=== PATIENT | female | born 1970 | race Caucasian/White ===

== ENCOUNTER 2016-05-27 20:09 | Emergency (ER) | payer OTHER ==
[2016-05-27 20:28] VITALS: BMI 24.3
[2016-05-27] MEDS ORDERED: KETOROLAC TROMETHAMINE 30 MG/1 ML VIAL IM ONE (20:58)
[2016-05-27] MEDS ORDERED: SODIUM CHLORIDE 1,000 ML IV STA ×2 (20:58→22:02)
[2016-05-27] MEDS ORDERED: ONDANSETRON 4 MG/2 ML VIAL IVPB ONE (20:58)
--- NOTE | 2016-05-27 21:10 | PDOC ---
*Physical Exam - Vital Signs Last Vital Signs Temp Pulse Resp BP Pulse Ox 100.0 F H 120 H 20 121/79 100 05/27/16 20:21 05/27/16 20:21 05/27/16 20:21 05/27/16 20:21 05/27/16 20:21 ED Treatment Course - LABORATORY CBC & Chemistry Diagram: 05/27/16 21:06 05/27/16 21:06 Medical Decision Making - Medical Decision Making 05/27/16 21:10 agree with care from SOLITARIO Gordon *DC/Admit/Observation/Transfer Diagnosis at time of Disposition: Influenza, Leukocytosis - Discharge Dispostion Disposition: HOME - Prescriptions Prescriptions: Butalbit/Acetamin/Caff/Codeine [Fioricet-Cod 57-148-82-30 Cap] 1 - 2 each PO Q4H PRN #18 capsule MDD 6 caps PRN Reason: Severe pain/Headache Oseltamivir Phosphate [Tamiflu] 75 mg PO BID #10 capsule Azithromycin [Zithromax -] 250 mg PO DAILY #4 tablet - Referrals Referrals: Jamey Rivera [Primary Care Provider] - - Patient Instructions Printed Discharge Instructions: Influenza, DI for Leukocytosis Additional Instructions: Nano el seguimiento con mccullough proveedor de atencin primaria esta semana. Llame para programar rodolfo saud. Delano los medicamentos segn lo prescrito. Necesita descansar mucho y beber melisa agua. Motrin o Tylenol para el dolor segn sea necesario. Tamiflu para tratar la gripe. Tamiflu no es rodolfo evelyn para la gripe s lo disminuye el tiempo que est enfermo. Zithromax es prevenir cualquier otra infeccin. Si echo sntomas empeoran o cualquier preocupacin vuelve para rodolfo evaluacin adicional. Comience con rodolfo dieta hien, donna jello, salsa de manzana , agua, avila humaira y avance a la dieta regular segn lo tolerado. Follow up with your primary care provider this week. Call to schedule appointment. Take medications as prescribed. You need to get plenty of rest and drink lots of water. Motrin or Tylenol for pain as needed. Tamiflu to treat flu. Tamiflu is not a cure for flu it just lessens the time you are sick. Zithromax is to prevent any further infection. If your symptoms worsen or any concerns return for further evaluation. Start with clear diet, such as Jello, Apple sauce, water, toast and advance to regular diet as tolerated. Print Language: NORTHERN IRISH
[2016-05-27] MEDS ORDERED: KETOROLAC TROMETHAMINE 30 MG/1 ML VIAL ONE ×2 (21:18→21:20)
[2016-05-27] MEDS ORDERED: ONDANSETRON 4 MG/2 ML VIAL ONE (21:18)
--- NOTE | 2016-05-27 21:21 | PDOC ---
History of Present Illness - General Chief Complaint: Pain Stated Complaint: ABD PAIN Time Seen by Provider: 05/27/16 20:46 History Source: Patient, Family (Daughter) Exam Limitations: Language Barrier - History of Present Illness Initial Comments: 05/27/16 21:16 45yo Female patient presents to ED c/o fever, body aches, nausea, poor appetite , + sick contacts, h/a x 3 days. Patient reports she went to see her PCP last week and was prescribed Zithromax. Patient has only taken 2 doses and does not feel any better, so she stopped taking medications. Patient denies any other complaints at this time. PmHx: Fibromyalgia, and asthma. Timing/Duration: 1 week, getting worse Severity: severe Modifying Factors: improves with: medication Associated Symptoms: reports: headaches, loss of appetite, malaise, nausea/ vomiting, weakness, other (Please See HPI) Aspirin Received prior to arrival: No: no aspirin today, unknown, 81 mg x 1, 81 mg x 2, 81 mg x 3, 81 mg x 4, 325 mg x 1, provided at home, provided by EMS, provided by ED [facility] Contraindications(Core Measure): No: Allergy, Other, Active Blding w/i 24 hrs., Plavix, Receiving Warfarin Beta Snehal Contraindications(Core Measure): No: Not Prescribed, Allergy, Bradycardia (HR <60bpm), Advanced Heart Block, Pacemaker, Other Past History - Travel Traveled outside of the country in the last 30 days: No Close contact w/someone who was outside of country & ill: No - Past Medical History Allergies/Adverse Reactions: Allergies Allergy/AdvReac Type Severity Reaction Status Date / Time No Known Allergies Allergy Verified 05/27/16 20:21 Home Medications: Ambulatory Orders Acetaminophen [Mapap] 500 mg PO Q8H 05/27/16 Azithromycin 500 mg PO DAILY 05/27/16 Cholecalciferol (Vitamin D3) [Vitamin D3] 400 unit PO DAILY 05/27/16 Cyclobenzaprine HCl [Flexeril -] 10 mg PO BID 05/27/16 Hydroxychloroquine Sulfate 200 mg PO DAILY 05/27/16 Loratadine 10 mg PO DAILY 05/27/16 Montelukast Na [Singulair -] 10 mg PO DAILY 05/27/16 Azithromycin [Zithromax -] 250 mg PO DAILY #4 tablet 05/28/16 Butalbit/Acetamin/Caff/Codeine [Fioricet-Cod 58-807-10-30 Cap] 1 - 2 each PO Q4H PRN #18 capsule MDD 6 caps 05/28/16 Oseltamivir Phosphate [Tamiflu] 75 mg PO BID #10 capsule 05/28/16 Asthma: Yes Other medical history: fibromyalgia - Surgical History Abdominal Surgery: Yes (tummy tuck, lipo) - Immunization History Immunization Up to Date: Yes - Psycho/Social/Smoking Cessation Hx Suicidal Ideation: No Smoking History: Never smoked Hx Alcohol Use: No Drug/Substance Use Hx: No Review of Systems - Review of Systems Able to Perform ROS?: Yes Is the patient limited Wolof proficient: No Constitutional: Yes: Fever, Malaise. No: Chills, Weakness Respiratory: No: Cough, Shortness of Breath, Stridor, Wheezing Cardiac (ROS): No: Chest Pain ABD/GI: Yes: Nausea, Poor Appetite, Poor Fluid Intake. No: Diarrhea, Vomiting : No: Burning, Dysuria, Hematuria Musculoskeletal: Yes: Muscle Pain Integumentary: No: Bruising, Erythema, Rash, Sweating Neurological: Yes: Headache, Weakness, Dizziness. No: Numbness, Seizure, Tingling, Tremors All Other Systems: Reviewed and Negative *Physical Exam - Vital Signs Last Vital Signs Temp Pulse Resp BP Pulse Ox 100.0 F H 120 H 20 121/79 100 05/27/16 20:21 05/27/16 20:21 05/27/16 20:21 05/27/16 20:21 05/27/16 20:21 - Physical Exam General Appearance: Yes: Nourished, Appropriately Dressed, Moderate Distress HEENT: positive: EOMI, DMITRY, Normal ENT Inspection, Normal Voice, Symmetrical, TMs Normal, Pharynx Normal Neck: positive: Trachea midline, Supple Respiratory/Chest: positive: Lungs Clear, Normal Breath Sounds Cardiovascular: positive: Regular Rhythm, Regular Rate Gastrointestinal/Abdominal: positive: Normal Bowel Sounds, Soft. negative: Tender Lymphatic: negative: Adenopathy Musculoskeletal: positive: Normal Inspection. negative: CVA Tenderness Extremity: positive: Normal Capillary Refill, Normal Inspection, Normal Range of Motion. negative: Pedal Edema, Swelling, Erythema Integumentary: positive: Normal Color, Dry, Warm. 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 NML intact, Fully Oriented, Alert, Normal Mood/ Affect, Normal Response, Motor Strength 09/19 ED Treatment Course - LABORATORY CBC & Chemistry Diagram: 05/27/16 21:06 05/27/16 21:06 *DC/Admit/Observation/Transfer Diagnosis at time of Disposition: Influenza Leukocytosis Qualifiers: Leukocytosis type: other Qualified Code(s): D72.828 - Other elevated white blood cell count - Discharge Dispostion Disposition: HOME Condition at time of disposition: Stable Admit: No - Prescriptions Prescriptions: Butalbit/Acetamin/Caff/Codeine [Fioricet-Cod 85-380-10-30 Cap] 1 - 2 each PO Q4H PRN #18 capsule MDD 6 caps PRN Reason: Severe pain/Headache Oseltamivir Phosphate [Tamiflu] 75 mg PO BID #10 capsule Azithromycin [Zithromax -] 250 mg PO DAILY #4 tablet - Patient Instructions Printed Discharge Instructions: Influenza, DI for Leukocytosis Additional Instructions: Nano el seguimiento con mccullough proveedor de atencin primaria esta semana. Llame para programar rodolfo saud. [place] los medicamentos segn lo prescrito. Necesita descansar mucho y beber melisa agua. Motrin o Tylenol para el dolor segn sea necesario. Tamiflu para tratar la gripe. Tamiflu no es rodolfo evelyn para la gripe s lo disminuye el tiempo que est enfermo. Zithromax es prevenir cualquier otra infeccin. Si echo sntomas empeoran o cualquier preocupacin vuelve para rodolfo evaluacin adicional. Comience con rodolfo dieta hien, donna jello, salsa de manzana , agua, avila humaira y avance a la dieta regular segn lo tolerado. Follow up with your primary care provider this week. Call to schedule appointment. Take medications as prescribed. You need to get plenty of rest and drink lots of water. Motrin or Tylenol for pain as needed. Tamiflu to treat flu. Tamiflu is not a cure for flu it just lessens the time you are sick. Zithromax is to prevent any further infection. If your symptoms worsen or any concerns return for further evaluation. Start with clear diet, such as Jello, Apple sauce, water, toast and advance to regular diet as tolerated. Print Language: ERITREAN
[2016-05-27 21:51] LABS: CALCIUM 8.5 mg/dL (8.5-10.1); CREATININE 0.8 mg/dL (0.55-1.02)
[2016-05-27 21:56] LABS: BASOPHIL 0.3 % (0-2.0); EOSINOPHIL 0.1 % (0-4.5); MCH 29.9 pg (25.7-33.7); MCHC 32.7 g/dl (32.0-36.0); MEAN CELL VOLUME 91.3 fl (80-96); NEUTROPHILS 87.7 % (42.8-82.8); PLATELET COUNT 340 K/MM3 (134-434); WHITE BLOOD COUNT 17.1 K/mm3 (4.0-10.0)
[2016-05-27] MEDS ORDERED: ACETAMINOPHEN/CAFFEINE/BUTALBITAL 1 TAB PO ONE (22:02)
[2016-05-27] MEDS ORDERED: METHOCARBAMOL 500 MG TABLET PO ONE (22:02)
[2016-05-27] MEDS ORDERED: ACETAMINOPHEN/CAFFEINE/BUTALBITAL 1 TAB ONE (22:06)
[2016-05-27] MEDS ORDERED: METHOCARBAMOL 500 MG TABLET ONE (22:06)
[2016-05-27 22:47] LABS: AMYLASE 46 U/L (25-115)
[2016-05-27 23:10] LABS: URINE APPEARANCE CLEAR; URINE BILIRUBIN NEGATIVE (NEGATIVE); URINE BLOOD NEGATIVE (NEGATIVE); URINE COLOR LT. YELLOW; URINE GLUCOSE (UA) NEGATIVE (NEGATIVE); URINE KETONE 2+ (NEGATIVE); URINE LEUK ESTERASE NEGATIVE (NEGATIVE); URINE NITRITE NEGATIVE (NEGATIVE); URINE PROTEIN NEGATIVE (NEGATIVE); URINE UROBILINOGEN 0.2 E.U/dl E.U./dl (0.2-1.0)
[2016-05-28] MEDS ORDERED: OSELTAMIVIR PHOSPHATE 75 MG CAPSULE PO ONE (00:03)
[2016-05-28] MEDS ORDERED: AZITHROMYCIN 250 MG TABLET (FP) PO ONE (00:03)
[2016-05-28] MEDS ORDERED: OSELTAMIVIR PHOSPHATE 75 MG CAPSULE ONE (00:21)
[2016-05-28] MEDS ORDERED: AZITHROMYCIN 250 MG TABLET (FP) ONE (00:21)
[2016-05-29 17:38] VITALS: BP 123/75; PULSE 88; TEMP 98.7
== END 2016-05-28 00:34 | disposition home or self-care (01) ==
LOC: JER 20:09
PROC: 3E0337Z Introduction of Electrolytic and Water Balance Substance into Peripheral Vein, Percutaneous Approach (ICD-10-PCS; principal; 2016-05-27)
PROC: 3E033GC Introduction of Other Therapeutic Substance into Peripheral Vein, Percutaneous Approach (ICD-10-PCS; 2016-05-27)
PROC: 3E0233Z Introduction of Anti-inflammatory into Muscle, Percutaneous Approach (ICD-10-PCS; 2016-05-27)
DX: J11.1 Influenza due to unidentified influenza virus with other respiratory manifestations (principal); D72.828 Other elevated white blood cell count
CPT/HCPCS: 36415; 71020-TC; 80048; 81003; 82150; 82550; 83690; 84703; 85025; 99283-25

== ENCOUNTER 2019-01-24 20:56 | Emergency (ER) | payer OTHER ==
--- NOTE | 2019-01-24 21:07 | PDOC ---
Rapid Medical Evaluation Medical Evaluation: Allergies Allergy/AdvReac Type Severity Reaction Status Date / Time No Known Allergies Allergy Verified 05/27/16 20:21 I have performed a brief in-person evaluation of this patient. The patient presents with a chief complaint of: hx of lupus, fibromyalgia, arthritis; C/O red and black discoloration/pain along L lateral thigh from today ; denies fall, surgery Pertinent physical exam findings: +large hematoma along L lateral thigh I have ordered the following: labs The patient will proceed to the ED for further evaluation. 01/24/19 21:02
[2019-01-24 21:12] VITALS: BP 148/85; PULSE 91; TEMP 98.8; BMI 26.9
[2019-01-24 21:34] LABS: BASO % 0.6 % (0-2.0); EOS % 1.7 % (0-4.5); HEMATOCRIT 37.2 % (32.4-45.2); HEMOGLOBIN 12.4 GM/dL (10.7-15.3); LYMPH % 24.1 % (8-40); MCH 30.9 pg (25.7-33.7); MCHC 33.5 g/dl (32.0-36.0); MEAN CELL VOLUME 92.3 fl (80-96); MEAN PLT VOLUME 7.9 fl (7.5-11.1); MONO % 7.4 % (3.8-10.2); NEUT % 66.2 % (42.8-82.8); PLATELET COUNT 382 K/MM3 (134-434); RBC 4.03 M/mm3 (3.60-5.2); RDW 13.4 % (11.6-15.6); WHITE BLOOD COUNT 9.9 K/mm3 (4.0-10.0)
[2019-01-24 21:48] LABS: INR 0.92 (0.83-1.09); PROTHROMBIN TIME (PATIENT) 10.9 SEC (9.7-13.0)
[2019-01-24 21:51] LABS: ACTIVATED PTT 29.9 SECONDS (25.2-36.5)
[2019-01-24 22:06] LABS: ALBUMIN 3.7 g/dl (3.4-5.0); BILIRUBIN,TOTAL 0.2 mg/dL (0.2-1); BLOOD UREA NITROGEN 12.4 mg/dL (7-18); CALCIUM 9.4 mg/dL (8.5-10.1); CREATININE 0.8 mg/dL (0.55-1.3); TOT PROT 7.7 g/dl (6.4-8.2)
--- NOTE | 2019-01-24 22:50 | PDOC ---
History of Present Illness - General Chief Complaint: Redness To Affected Area Stated Complaint: LEFT LEG PAIN Time Seen by Provider: 01/24/19 21:01 History Source: Patient Exam Limitations: No Limitations - History of Present Illness Initial Comments: 01/24/19 22:56 HISTORY OF PRESENT ILLNESS: 48 old woman past medical history of lupus, Sjogren' s, fibromyalgia who presents emergency department for evaluation of atraumatic bruising present to left hip starting today. Patient reports she woke up this morning felt some itching in her left hip. She describes it then and noted that she had a tight feeling in her left thigh an area of faint erythema and induration to the left lateral thigh. She denies any fevers, chills, trauma. No recent travel or sick contacts. PAST MEDICAL HISTORY: Denies past medical history SURGICAL HISTORY: Denies ALLERGIES: No known drug allergies REVIEW OF SYSTEMS General/Constitutional: Denies fever or chills. Denies weakness, weight change. HEENT: Denies change in vision. Denies ear pain or discharge. Denies sore throat. Cardiovascular: Denies chest pain or shortness of breath. Respiratory: Denies cough, wheezing, or hemoptysis. Gastrointestinal: Denies nausea, vomiting, diarrhea or constipation. Denies rectal bleeding. Genitourinary: Denies dysuria, frequency, or change in urination. Musculoskeletal: see HPI Skin and breasts: Denies rash or easy bruising. Neurologic: Denies headache, vertigo, loss of consciousness, or loss of sensation. Psychiatric: Denies depression or anxiety. Endocrine: Denies increased thirst. Denies abnormal weight change. Hematologic/Lymphatic: Denies anemia, easy bleeding, or history of blood clots. Allergic/Immunologic: Denies hives or skin allergy. Denies latex allergy. PHYSICAL EXAM General Appearance: Well-appearing, appropriately dressed. No apparent distress , no intoxication. Respiratory/Chest: Lungs CTAB. No shortness of breath, chest tenderness, respiratory distress, accessory muscle use. No crackles, rales, rhonchi, stridor , wheezing, dullness Cardiovascular: RRR. S1, S2. No JVD, murmur, bradycardia, tachycardia. Vascular Pulses: Dorsalis-Pedis (R): 2+, Dorsalis-Pedis (L): 2+ Musculoskeletal/Extremities: Normal inspection. FROM of all extremities, normal capillary refill. Pelvis Stable. No CVA tenderness. No tenderness to palpation over the left trochanter. Ambulatory with steady gait. Integumentary: Indurated lacy 17 x 19 cm ovoid area present to the left lateral hip. Tenderness upon palpation. No ecchymosis is present. 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 Fully oriented, alert. Appropriate mood/affect. Motor strength 5/5. No appreciable EOM palsy, facial droop or sensory deficit. Past History - Past Medical History Allergies/Adverse Reactions: Allergies Allergy/AdvReac Type Severity Reaction Status Date / Time No Known Allergies Allergy Verified 05/27/16 20:21 Home Medications: Ambulatory Orders Acetaminophen [Mapap] 500 mg PO Q8H 05/27/16 Azithromycin 500 mg PO DAILY 05/27/16 Cholecalciferol (Vitamin D3) [Vitamin D3] 400 unit PO DAILY 05/27/16 Cyclobenzaprine HCl [Flexeril -] 10 mg PO BID 05/27/16 Hydroxychloroquine Sulfate 200 mg PO DAILY 05/27/16 Loratadine 10 mg PO DAILY 05/27/16 Montelukast Na [Singulair -] 10 mg PO DAILY 05/27/16 Azithromycin [Zithromax -] 250 mg PO DAILY #4 tablet 05/28/16 Butalbit/Acetamin/Caff/Codeine [Fioricet-Cod 74-618-26-30 Cap] 1 - 2 each PO Q4H PRN #18 capsule MDD 6 caps 05/28/16 Oseltamivir Phosphate [Tamiflu] 75 mg PO BID #10 capsule 05/28/16 Asthma: Yes COPD: No Other medical history: lupus, fibromyalgia - Surgical History Abdominal Surgery: Yes (tummy tuck, lipo) - Immunization History Immunization Up to Date: Yes - Suicide/Smoking/Psychosocial Hx Smoking History: Never smoked Hx Alcohol Use: No Drug/Substance Use Hx: No *Physical Exam - Vital Signs Last Vital Signs Temp Pulse Resp BP Pulse Ox 98.8 F 91 H 18 148/85 9 L 01/24/19 21:03 01/24/19 21:03 01/24/19 21:03 01/24/19 21:03 01/24/19 21:03 ED Treatment Course - LABORATORY CBC & Chemistry Diagram: 01/24/19 21:20 01/24/19 21:20 - ADDITIONAL ORDERS Additional order review: Laboratory Results 01/24/19 01/24/19 21:20 21:20 PT with INR 10.90 INR 0.92 PTT (Actin FS) 29.9 Sodium 138 Potassium 4.0 Chloride 104 Carbon Dioxide 24 Anion Gap 9 BUN 12.4 Creatinine 0.8 Est GFR (CKD-EPI)AfAm 101.75 Est GFR (CKD-EPI)NonAf 87.79 Random Glucose 94 Calcium 9.4 Total Bilirubin 0.2 AST 23 ALT 14 Alkaline Phosphatase 87 Total Protein 7.7 Albumin 3.7 01/24/19 21:20 RBC 4.03 MCV 92.3 MCHC 33.5 RDW 13.4 MPV 7.9 Neutrophils % 66.2 D Lymphocytes % 24.1 D Monocytes % 7.4 Eosinophils % 1.7 D Basophils % 0.6 Medical Decision Making - Medical Decision Making 01/24/19 23:00 A/P: 48-year-old woman with developing hematoma to left thigh Labs per RME UPT CT of left leg Reassess 01/25/19 02:04 Multiple attempts to find patient emergency department at been unsuccessful. Patient without IV access in place. 01/25/19 02:48 *DC/Admit/Observation/Transfer Diagnosis at time of Disposition: Hip pain, left - Discharge Dispostion Disposition: ELOPED - Referrals Referrals: ON STAFF,NOT [Primary Care Provider] - - Patient Instructions - Post Discharge Activity
== END 2019-01-25 00:10 | disposition home or self-care (01) ==
LOC: JER 20:56
DX: M25.552 Pain in left hip (principal); M79.7 Fibromyalgia; M35.00 Sjogren syndrome, unspecified
CPT/HCPCS: 36415; 80053; 85025; 85610; 85730; 99282-25

== ENCOUNTER 2019-01-26 10:54 | Emergency (ER) | payer OTHER ==
[2019-01-26 11:10] VITALS: TEMP 98.3; BMI 29.2
[2019-01-26] MEDS ORDERED: ASPIRIN 81 MG CHEWABLE TABLETS PO ONE (11:59)
--- NOTE | 2019-01-26 12:13 | PDOC ---
History of Present Illness - General Chief Complaint: Pain Stated Complaint: LT LEG PAIN/REVISIT Time Seen by Provider: 01/26/19 11:31 - History of Present Illness Initial Comments: 01/26/19 12:07 48-year-old female with a past medical history of SLE, Sjogren's, asthma, and chronic pain and depression presents for evaluation of chest pain and an ecchymotic area on her left thigh. The area on her left thigh started out as erythema she was seen in the emergency room but unfortunately eloped and wasn't properly worked up. She now has similar ecchymotic areas on bilateral inner thighs. Chest pain has been on and off since Thursday. Past History - Past Medical History Allergies/Adverse Reactions: Allergies Allergy/AdvReac Type Severity Reaction Status Date / Time No Known Allergies Allergy Verified 01/26/19 11:02 Home Medications: Ambulatory Orders Acetaminophen [Mapap] 500 mg PO Q8H 05/27/16 Azithromycin 500 mg PO DAILY 05/27/16 Cholecalciferol (Vitamin D3) [Vitamin D3] 400 unit PO DAILY 05/27/16 Cyclobenzaprine HCl [Flexeril -] 10 mg PO BID 05/27/16 Hydroxychloroquine Sulfate 200 mg PO DAILY 05/27/16 Loratadine 10 mg PO DAILY 05/27/16 Montelukast Na [Singulair -] 10 mg PO DAILY 05/27/16 Azithromycin [Zithromax -] 250 mg PO DAILY #4 tablet 05/28/16 Butalbit/Acetamin/Caff/Codeine [Fioricet-Cod 97-000-89-30 Cap] 1 - 2 each PO Q4H PRN #18 capsule MDD 6 caps 05/28/16 Oseltamivir Phosphate [Tamiflu] 75 mg PO BID #10 capsule 05/28/16 Asthma: Yes COPD: No Other medical history: Lupus - Surgical History Abdominal Surgery: Yes (brown dejesus) - Immunization History Immunization Up to Date: Yes - Suicide/Smoking/Psychosocial Hx Smoking History: Never smoked Have you smoked in the past 12 months: No Hx Alcohol Use: No Drug/Substance Use Hx: No Review of Systems - Review of Systems Constitutional: No: Fever Cardiac (ROS): Yes: Chest Pain Integumentary: Yes: Pruritus, Rash *Physical Exam - Vital Signs Last Vital Signs Temp Pulse Resp BP Pulse Ox 98.3 F 95 H 18 126/84 97 01/26/19 11:04 01/26/19 11:04 01/26/19 11:04 01/26/19 11:04 01/26/19 11:04 - Physical Exam Comments: 01/26/19 12:10 HEAD: NC/AT EYES: Conjuntiva clear Ears: Canals and TM's normal NOSE: No d/c THROAT: Moist mucous membrances, oral pharanx clear, uvula midline NECK: Supple without adenopathy CARDIAC: S1 S2 LUNGS: CTA Full and Equal breath sounds ABDOMEN: Soft NT ND MS: Full ROM in all joints without edema NEUROLOGIC: No gross sensory or motor deficits, NVID SKIN: Normal color and temperature is an ecchymotic area on the lateral aspect of the left hip; there is a large area of the raised wheal with erythema and warmth without induration or fluctuance on the medial aspect of the left thigh ED Treatment Course - RADIOLOGY Radiology Studies Ordered: Category Date Time Status CHEST PA & LAT [RAD] Stat Radiology 01/26/19 11:59 Ordered Medical Decision Making - Medical Decision Making 01/26/19 12:13 I discussed this case with the emergency room attending. We'll do a cardiac workup at this time and transfer this patient to the main emergency room for further workup evaluation and treatment *DC/Admit/Observation/Transfer Diagnosis at time of Disposition: Chest pain - Referrals Referrals: Jamey Rivera [Primary Care Provider] - - Patient Instructions - Post Discharge Activity
[2019-01-26 12:40] LABS: BASO % 0.7 % (0-2.0); EOS % 1.9 % (0-4.5); HEMATOCRIT 38.2 % (32.4-45.2); HEMOGLOBIN 12.9 GM/dL (10.7-15.3); LYMPH % 23.1 % (8-40); MCH 31.2 pg (25.7-33.7); MCHC 33.8 g/dl (32.0-36.0); MEAN CELL VOLUME 92.4 fl (80-96); MEAN PLT VOLUME 7.5 fl (7.5-11.1); MONO % 9.5 % (3.8-10.2); NEUT % 64.8 % (42.8-82.8); PLATELET COUNT 377 K/MM3 (134-434); RBC 4.13 M/mm3 (3.60-5.2); RDW 13.4 % (11.6-15.6); WHITE BLOOD COUNT 7.2 K/mm3 (4.0-10.0)
[2019-01-26 13:08] LABS: ALBUMIN 3.7 g/dl (3.4-5.0); ALK PHOS 80 U/L (45-117); ANION GAP 8 MMOL/L (8-16); BILIRUBIN,TOTAL 0.5 mg/dL (0.2-1); BLOOD UREA NITROGEN 7.8 mg/dL (7-18); CALCIUM 8.8 mg/dL (8.5-10.1); CHLORIDE 105 mmol/L (98-107); CO2 25 mmol/L (21-32); CREATININE 0.6 mg/dL (0.55-1.3); GLUCOSE,RANDOM 82 mg/dL (74-106); MAGNESIUM 2.2 mg/dL (1.8-2.4); POTASSIUM 4.1 mmol/L (3.5-5.1); SGOT/AST 25 U/L (15-37); SGPT/ALT 13 U/L (13-61); SODIUM 138 mmol/L (136-145); TOT PROT 7.9 g/dl (6.4-8.2)
[2019-01-26] MEDS ORDERED: diphenhydrAMINE HCL 25 MG CAPSULE (FP) PO ONE ×2 (13:16→13:34)
--- NOTE | 2019-01-26 13:22 | PDOC ---
History of Present Illness - General Chief Complaint: Pain Stated Complaint: LT LEG PAIN/REVISIT Time Seen by Provider: 01/26/19 11:31 History Source: Patient - History of Present Illness Timing/Duration: reports: other Associated Symptoms: reports: rash Past History - Past Medical History Allergies/Adverse Reactions: Allergies Allergy/AdvReac Type Severity Reaction Status Date / Time No Known Allergies Allergy Verified 01/26/19 11:02 Home Medications: Ambulatory Orders Acetaminophen [Mapap] 500 mg PO Q8H 05/27/16 Azithromycin 500 mg PO DAILY 05/27/16 Cholecalciferol (Vitamin D3) [Vitamin D3] 400 unit PO DAILY 05/27/16 Cyclobenzaprine HCl [Flexeril -] 10 mg PO BID 05/27/16 Hydroxychloroquine Sulfate 200 mg PO DAILY 05/27/16 Loratadine 10 mg PO DAILY 05/27/16 Montelukast Na [Singulair -] 10 mg PO DAILY 05/27/16 Azithromycin [Zithromax -] 250 mg PO DAILY #4 tablet 05/28/16 Butalbit/Acetamin/Caff/Codeine [Fioricet-Cod 46-797-33-30 Cap] 1 - 2 each PO Q4H PRN #18 capsule MDD 6 caps 05/28/16 Oseltamivir Phosphate [Tamiflu] 75 mg PO BID #10 capsule 05/28/16 Asthma: Yes COPD: No Other medical history: Lupus - Surgical History Abdominal Surgery: Yes (tummy tuck, lipo) - Immunization History Immunization Up to Date: Yes - Suicide/Smoking/Psychosocial Hx Smoking History: Never smoked Have you smoked in the past 12 months: No Hx Alcohol Use: No Drug/Substance Use Hx: No Review of Systems - Review of Systems Constitutional: No: Chills, Fever Respiratory: No: Cough, Shortness of Breath Cardiac (ROS): Yes: Chest Pain. No: Lightheadedness, Palpitations, Syncope Integumentary: Yes: Pruritus, Rash *Physical Exam - Vital Signs Last Vital Signs Temp Pulse Resp BP Pulse Ox 98.3 F 95 H 18 126/84 97 01/26/19 11:04 01/26/19 11:04 01/26/19 11:04 01/26/19 11:04 01/26/19 11:04 - Physical Exam General Appearance: Yes: Appropriately Dressed. No: Apparent Distress HEENT: positive: Normal Voice Neck: positive: Supple Respiratory/Chest: positive: Lungs Clear, Normal Breath Sounds. negative: Respiratory Distress Cardiovascular: positive: Regular Rate, S1, S2 Extremity: positive: Normal Inspection, Other (large erythematous macule to medial thigh b/l, ~8x4cm hematoma to lateral aspect of L gluteus, minimal ttp) Integumentary: positive: Dry, Warm Neurologic: positive: Fully Oriented, Alert, Normal Mood/Affect ED Treatment Course - LABORATORY CBC & Chemistry Diagram: 01/26/19 12:17 01/26/19 12:17 - ADDITIONAL ORDERS Additional order review: Laboratory Results 01/26/19 01/26/19 01/26/19 12:17 12:17 12:17 D-Dimer 1411 H Sodium Potassium Chloride Carbon Dioxide Anion Gap BUN Creatinine Est GFR (CKD-EPI)AfAm Est GFR (CKD-EPI)NonAf Random Glucose Calcium Magnesium Cancelled Total Bilirubin AST ALT Alkaline Phosphatase Creatine Kinase Troponin I Total Protein Albumin Serum , Qual Negative 01/26/19 01/26/19 12:17 12:17 D-Dimer Sodium 138 Potassium 4.1 Chloride 105 Carbon Dioxide 25 Anion Gap 8 BUN 7.8 Creatinine 0.6 Est GFR (CKD-EPI)AfAm 125.80 Est GFR (CKD-EPI)NonAf 108.54 Random Glucose 82 Calcium 8.8 Magnesium 2.2 Total Bilirubin 0.5 AST 25 ALT 13 Alkaline Phosphatase 80 Creatine Kinase 72 Cancelled Troponin I < 0.02 Cancelled Total Protein 7.9 Albumin 3.7 Serum , Qual 01/26/19 12:17 RBC 4.13 MCV 92.4 MCHC 33.8 RDW 13.4 MPV 7.5 Neutrophils % 64.8 Lymphocytes % 23.1 Monocytes % 9.5 Eosinophils % 1.9 Basophils % 0.7 Medical Decision Making - Medical Decision Making 01/26/19 13:18 48-year-old female, history of lupus, Sjogren's, fibromyalgia and arthritis, here for evaluation of rash. Patient states she has a history of spontaneous red, itchy rashes that would spontaneously developed into hematomas that, then ultimately resolves. States she was here in ED 2 days ago for hematoma over left hip that initially started out at as a red itchy rash. Patient states she does not always come to the ED, but came in 2 days ago because of the size of the hematoma, which is mildly painful. Since ED visit 2 days ago, has since developed 2 additional red itchy rash to medial thighs bilaterally. Labs 2 days ago were negative, but patient eloped from the ED prior to completion of evaluation. Patient also complaining of vague left-sided chest pain 3 days. No shortness of breath, diaphoresis, palpitations, leg pain or swelling. see exam Spontaneous hematoma Recurrent H/o multiple rhem disease including lupus, not on AC Labs including plts and coags neg in ED 2 days ago -benadryl for pruritis -anticipate dc w/ rheum f/u CP Atypical Stable here -EKG w/ single trop given duration of sxs -CTA given h/o lupus -dispo pending=g 01/26/19 15:47 CTA neg for PE or other acute pathology. Pt remained welll richard and stable here. Will dc w/ rheumatology and PMD f/u *DC/Admit/Observation/Transfer Diagnosis at time of Disposition: Rash and nonspecific skin eruption Chest pain Qualifiers: Chest pain type: unspecified Qualified Code(s): R07.9 - Chest pain, unspecified - Discharge Dispostion Disposition: HOME Condition at time of disposition: Good - Referrals Referrals: Jamey Rivera [Primary Care Provider] - - Patient Instructions Printed Discharge Instructions: DI for Atypical Chest Pain Additional Instructions: Regarding your chest pain, your EKG and CT of your lungs were normal. Please follow-up with your PMD if pain persists. The course of your rash is unclear at this time but may be due to any of the rheumatological disorders that you have. Take an oral antihistamine for itching as discussed today Please follow-up with your hand model for further evaluation - Post Discharge Activity
[2019-01-26 13:27] LABS: INR 1.02 (0.83-1.09)
[2019-01-26] MEDS ORDERED: ASPIRIN 81 MG CHEWABLE TABLETS ONE (13:33)
--- NOTE | 2019-01-26 13:41 | PDOC ---
*Physical Exam - Vital Signs Last Vital Signs Temp Pulse Resp BP Pulse Ox 98.3 F 95 H 18 126/84 97 01/26/19 11:04 01/26/19 11:04 01/26/19 11:04 01/26/19 11:04 01/26/19 11:04 - Physical Exam Comments: 01/26/19 13:40 The patient was examined by [MICHELLE Maria] under my direct supervision. I personally evaluated the patient. I concur with the above findings and the plan of care. ED Treatment Course - LABORATORY CBC & Chemistry Diagram: 01/26/19 12:17 01/26/19 12:17 - ADDITIONAL ORDERS Additional order review: Laboratory Results 01/26/19 01/26/19 01/26/19 12:17 12:17 12:17 PT with INR 12.00 INR 1.02 D-Dimer Sodium Potassium Chloride Carbon Dioxide Anion Gap BUN Creatinine Est GFR (CKD-EPI)AfAm Est GFR (CKD-EPI)NonAf Random Glucose Calcium Magnesium Cancelled Total Bilirubin AST ALT Alkaline Phosphatase Creatine Kinase Troponin I Total Protein Albumin Serum , Qual Negative 01/26/19 01/26/19 01/26/19 12:17 12:17 12:17 PT with INR INR D-Dimer 1411 H Sodium 138 Potassium 4.1 Chloride 105 Carbon Dioxide 25 Anion Gap 8 BUN 7.8 Creatinine 0.6 Est GFR (CKD-EPI)AfAm 125.80 Est GFR (CKD-EPI)NonAf 108.54 Random Glucose 82 Calcium 8.8 Magnesium 2.2 Total Bilirubin 0.5 AST 25 ALT 13 Alkaline Phosphatase 80 Creatine Kinase 72 Cancelled Troponin I < 0.02 Cancelled Total Protein 7.9 Albumin 3.7 Serum , Qual 01/26/19 12:17 RBC 4.13 MCV 92.4 MCHC 33.8 RDW 13.4 MPV 7.5 Neutrophils % 64.8 Lymphocytes % 23.1 Monocytes % 9.5 Eosinophils % 1.9 Basophils % 0.7 *DC/Admit/Observation/Transfer Diagnosis at time of Disposition: Chest pain - Referrals Referrals: Jamey Rivera [Primary Care Provider] - - Patient Instructions - Post Discharge Activity
--- NOTE | 2019-01-26 14:40 | EKG ---
Test Reason : Blood Pressure : / mmHG Vent. Rate : 079 BPM Atrial Rate : 079 BPM P-R Int : 114 ms QRS Dur : 086 ms QT Int : 378 ms P-R-T Axes : 060 -05 008 degrees QTc Int : 433 ms NORMAL SINUS RHYTHM MINIMAL VOLTAGE CRITERIA FOR LVH, MAY BE NORMAL VARIANT BORDERLINE ECG NO PREVIOUS ECGS AVAILABLE Confirmed by EVELYN BHARDWAJ MD ([id number]) on 01/26/2019 2:40:19 PM Referred By: Confirmed By:EVELYN BHARDWAJ MD
[2019-01-26 16:00] VITALS: BP 125/84; PULSE 84
== END 2019-01-26 16:00 | disposition home or self-care (01) ==
LOC: JER 10:54 → JERFT 10:54 → JER 16:00
DX: R07.9 Chest pain, unspecified (principal); J45.909 Unspecified asthma, uncomplicated; M35.00 Sjogren syndrome, unspecified; G89.29 Other chronic pain; F32.9 Major depressive disorder, single episode, unspecified
CPT/HCPCS: 36415; 71046-TC-FY; 71275-TC; 80053; 82550; 83735; 84484; 84703; 85025; 85379; 85610; 93005; 93010; 99284-25

== ENCOUNTER 2020-07-31 14:39 | Observation (INO) | payer OTHER ==
[2020-07-31] MEDS ORDERED: ADENOSINE 6 MG/2 ML VIAL IVPUSH ONE (14:57)
[2020-07-31] MEDS ORDERED: dilTIAZem HCL 50 MG/10 ML - 10 ML VIAL IVPUSH ONE (15:03)
[2020-07-31 16:06] VITALS: BMI 29.2
[2020-07-31 16:23] LABS: BASO % 0.7 % (0-2.0); EOS % 2.1 % (0-4.5); HEMATOCRIT 34.7 % (32.4-45.2); HEMOGLOBIN 11.6 GM/dL (10.7-15.3); LYMPH % 20.7 % (8-40); MCH 31.7 pg (25.7-33.7); MCHC 33.4 g/dl (32.0-36.0); MEAN CELL VOLUME 94.9 fl (80-96); MONO % 9.7 % (3.8-10.2); NEUT % 66.8 % (42.8-82.8); PLATELET COUNT 452 K/MM3 (134-434); RBC 3.65 M/mm3 (3.60-5.2); WHITE BLOOD COUNT 9.1 K/mm3 (4.0-10.0)
[2020-07-31 16:49] LABS: CHLORIDE 105 mmol/L (98-107); POTASSIUM 5.9 mmol/L (3.5-5.1); SODIUM 136 mmol/L (136-145)
[2020-07-31 16:50] LABS: CALCIUM 8.7 mg/dL (8.5-10.1)
[2020-07-31 16:51] LABS: ALBUMIN 3.1 g/dl (3.4-5.0); ANION GAP 9 MMOL/L (8-16); BLOOD UREA NITROGEN 9.2 mg/dL (7-18); CO2 22 mmol/L (21-32); GLUCOSE,RANDOM 88 mg/dL (74-106); MAGNESIUM 2.3 mg/dL (1.8-2.4)
[2020-07-31 16:54] LABS: CREATININE 0.8 mg/dL (0.55-1.3); SGOT/AST 121 U/L (15-37); SGPT/ALT 45 U/L (13-61)
[2020-07-31 16:56] LABS: BILIRUBIN,TOTAL 1.1 mg/dL (0.2-1); TOT PROT 8.3 g/dl (6.4-8.2)
[2020-07-31 16:57] LABS: ALK PHOS 138 U/L (45-117)
[2020-07-31] MEDS ORDERED: ASPIRIN 81 MG CHEWABLE TABLETS PO ONE (17:36)
[2020-07-31 20:36] LABS: URINE APPEARANCE CLEAR; URINE BILIRUBIN NEGATIVE (NEGATIVE); URINE COLOR YELLOW; URINE GLUCOSE (UA) NEGATIVE (NEGATIVE); URINE KETONE TRACE (NEGATIVE); URINE LEUK ESTERASE NEGATIVE (NEGATIVE); URINE NITRITE NEGATIVE (NEGATIVE); URINE PROTEIN NEGATIVE (NEGATIVE); URINE UROBILINOGEN 0.2 mg/dL (0.2-1.0)
[2020-07-31] MEDS ORDERED: IBUPROFEN 400 MG TABLET (FP) PO ONE ×2 (20:50→22:20)
[2020-07-31 22:47] LABS: POTASSIUM 4.1 mmol/L (3.5-5.1)
[2020-07-31 22:49] LABS: BLOOD UREA NITROGEN 7.3 mg/dL (7-18); CALCIUM 8.3 mg/dL (8.5-10.1)
[2020-07-31 22:53] LABS: CREATININE 0.6 mg/dL (0.55-1.3)
[2020-08-01] MEDS: HEPARIN NA (PORCINE) 5,000 UNITS/ML 1ML VIAL SQ SCH ×4 (03:05→21:51)
[2020-08-01 08:43] LABS: BASO % 0.4 % (0-2.0); EOS % 2.2 % (0-4.5); HEMATOCRIT 31.3 % (32.4-45.2); HEMOGLOBIN 10.6 GM/dL (10.7-15.3); LYMPH % 24.8 % (8-40); MCH 31.7 pg (25.7-33.7); MCHC 33.8 g/dl (32.0-36.0); MEAN CELL VOLUME 93.7 fl (80-96); NEUT % 59.6 % (42.8-82.8); PLATELET COUNT 416 K/MM3 (134-434); RBC 3.34 M/mm3 (3.60-5.2); RDW 12.5 % (11.6-15.6); WHITE BLOOD COUNT 6.8 K/mm3 (4.0-10.0)
[2020-08-01 09:06] LABS: POTASSIUM 4.3 mmol/L (3.5-5.1)
[2020-08-01 09:10] LABS: CALCIUM 8.9 mg/dL (8.5-10.1)
[2020-08-01 09:11] LABS: ALBUMIN 2.9 g/dl (3.4-5.0); BLOOD UREA NITROGEN 6.8 mg/dL (7-18); MAGNESIUM 2.2 mg/dL (1.8-2.4)
[2020-08-01 09:14] LABS: CREATININE 0.6 mg/dL (0.55-1.3)
[2020-08-01 09:15] LABS: BILIRUBIN,TOTAL 0.7 mg/dL (0.2-1); TOT PROT 7.2 g/dl (6.4-8.2)
[2020-08-01] MEDS: HYDROXYCHLOROQUINE SO4 200 MG TABLET (FP) PO SCH (10:24)
[2020-08-01] MEDS: LORATADINE 10 MG TABLET PO SCH (10:25)
[2020-08-01] MEDS ORDERED: ACETAMINOPHEN 325 MG TABLET (FP) PO PRN (14:31)
[2020-08-01] MEDS ORDERED: guaiFENesin 200 MG/10 ML 10 ML UNIT-DOSE CUPS PO PRN (14:31)
[2020-08-01] MEDS ORDERED: SODIUM CHLORIDE NASAL SPRAY 44 ML BOTTLE NS ONE (14:45)
[2020-08-01] MEDS ORDERED: MONTELUKAST NA 10 MG TABLET PO SCH (22:00)
[2020-08-02] MEDS: HEPARIN NA (PORCINE) 5,000 UNITS/ML 1ML VIAL SQ SCH ×2 (06:32→13:35)
[2020-08-02 08:40] LABS: HEMATOCRIT 31.6 % (32.4-45.2); HEMOGLOBIN 10.7 GM/dL (10.7-15.3); MCH 31.8 pg (25.7-33.7); MEAN CELL VOLUME 93.5 fl (80-96); MEAN PLT VOLUME 7.6 fl (7.5-11.1); PLATELET COUNT 487 K/MM3 (134-434); RBC 3.38 M/mm3 (3.60-5.2); RDW 12.6 % (11.6-15.6); WHITE BLOOD COUNT 6.5 K/mm3 (4.0-10.0)
[2020-08-02 09:00] LABS: POTASSIUM 3.8 mmol/L (3.5-5.1)
[2020-08-02 09:07] LABS: CALCIUM 8.6 mg/dL (8.5-10.1)
[2020-08-02 09:08] LABS: ALBUMIN 2.8 g/dl (3.4-5.0); BLOOD UREA NITROGEN 10.4 mg/dL (7-18); MAGNESIUM 2.2 mg/dL (1.8-2.4)
[2020-08-02 09:10] LABS: PHOSPHOROUS 3.3 mg/dL (2.5-4.9)
[2020-08-02 09:11] LABS: CREATININE 0.6 mg/dL (0.55-1.3)
[2020-08-02 09:12] LABS: BILIRUBIN,TOTAL 0.5 mg/dL (0.2-1); TOT PROT 7.3 g/dl (6.4-8.2)
[2020-08-02] MEDS: LORATADINE 10 MG TABLET PO SCH (10:05)
[2020-08-02] MEDS: HYDROXYCHLOROQUINE SO4 200 MG TABLET (FP) PO SCH (10:05)
[2020-08-02] MEDS ORDERED: LISINOPRIL 10 MG TABLET PO SCH (11:00)
[2020-08-02] MEDS ORDERED: HYDROCHLOROTHIAZIDE 12.5 MG CAPSULE (FP) PO SCH (11:00)
[2020-08-02 15:29] VITALS: BP 133/97; PULSE 78; TEMP 97.8
[2020-08-02] MEDS ORDERED: ATORVASTATIN CA 20 MG TABLET (FP) PO SCH (22:00)
== END 2020-08-02 16:02 | disposition home or self-care (01) ==
LOC: JER 14:39 → JERBED 18:12 → J6WEST-2 22:37
PROVIDERS: ADMIT Internal Medicine; ATTEND Student in an Organized Health Care Education/Training Program
PROC: 3E023GC Introduction of Other Therapeutic Substance into Muscle, Percutaneous Approach (ICD-10-PCS; principal; 2020-07-31)
DX: U07.1 COVID-19 (principal); M32.9 Systemic lupus erythematosus, unspecified; M35.00 Sjogren syndrome, unspecified; I10 Essential (primary) hypertension; J45.909 Unspecified asthma, uncomplicated; G89.29 Other chronic pain; F32.9 Major depressive disorder, single episode, unspecified; R42 Dizziness and giddiness; E66.3 Overweight; Z29.9 Encounter for prophylactic measures, unspecified
CPT/HCPCS: 36415; 71045-TC-FY; 80048; 80053; 80061; 81003; 83721; 83735; 84100; 84439; 84443; 84484; 85025; 85027; 93005; 93010; 93306-TC; 96372; 99285-25; C9803; G0378; J1644; U0003

== ENCOUNTER 2024-03-14 04:15 | Day surgery (SDC) | payer OTHER ==
[2024-03-11 14:25] VITALS: BMI 29.2
[2024-03-14] MEDS ORDERED: MIDAZOLAM HCL 2 MG/2 ML SINGLE DOSE VIAL ONE (14:45)
[2024-03-14 15:18] VITALS: RESP 16
[2024-03-14 15:57] VITALS: BP 120/84; PULSE 62; TEMP 97.5
== END 2024-03-14 16:07 | disposition home or self-care (01) ==
LOC: JASU-SURG 04:15
PROVIDERS: ATTEND Urology
PROC: 0TF3XZZ Fragmentation in Right Kidney Pelvis, External Approach (ICD-10-PCS; principal; 2024-03-14 14:50)
DX: N20.0 Calculus of kidney (principal)

== ENCOUNTER 2024-03-27 20:50 | Emergency (ER) | payer OTHER ==
[2024-03-27 20:57] VITALS: BMI 29.2
[2024-03-27] MEDS ORDERED: ACETAMINOPHEN 500 MG TABLET (FP) ONE (21:29)
[2024-03-27] MEDS: ACETAMINOPHEN 500 MG TABLET (FP) PO ONE (21:33)
[2024-03-27 21:52] LABS: EPI CELLS 10 /uL (0-25.1); HYALINE CASTS 0 /uL (0-3.1); URINE APPEARANCE CLEAR; URINE BACTERIA 591 /uL (0-1359); URINE BILIRUBIN NEGATIVE (NEGATIVE); URINE COLOR YELLOW; URINE GLUCOSE (UA) NEGATIVE (NEGATIVE); URINE KETONE NEGATIVE (NEGATIVE); URINE LEUK ESTERASE TRACE (NEGATIVE); URINE NITRITE NEGATIVE (NEGATIVE); URINE PROTEIN NEGATIVE (NEGATIVE); URINE WBC 21 /uL (0-25.8)
[2024-03-27] MEDS ORDERED: SULFAMETHOXAZOLE/TRIMETHOPRIM 800MG/160MG D.S. TABLET ONE (22:20)
[2024-03-27] MEDS: SULFAMETHOXAZOLE/TRIMETHOPRIM 800MG/160MG D.S. TABLET PO ONE (22:24)
[2024-03-27 22:25] VITALS: BP 110/78; PULSE 78; RESP 19; TEMP 97.9
[2024-03-27 22:48] LABS: URINE RBC 58.7 /uL (0-23.9)
== END 2024-03-27 22:26 | disposition home or self-care (01) ==
LOC: JERFT 20:50
DX: N39.0 Urinary tract infection, site not specified (principal); M79.10 Myalgia, unspecified site; R68.83 Chills (without fever); J02.9 Acute pharyngitis, unspecified; M54.50 Low back pain, unspecified
CPT/HCPCS: 81003; 87086; 87651; 99283-25

== ENCOUNTER 2024-09-20 17:25 | Emergency (ER) | payer OTHER ==
[2024-09-20 17:35] VITALS: BP 115/77; PULSE 74; RESP 16; TEMP 98.3; BMI 33.2
[2024-09-20] MEDS ORDERED: ACETAMINOPHEN 500 MG TABLET (FP) ONE (18:30)
[2024-09-20] MEDS ORDERED: METOCLOPRAMIDE HCL INJECTION 10 MG/2 ML VIAL ONE (18:31)
[2024-09-20] MEDS ORDERED: MECLIZINE HCL 25 MG TABLET (FP) ONE (18:31)
[2024-09-20 18:39] LABS: ABSOLUTE IMMATURE GRANULOCYTES 0.01 x10^3/uL (0.0-0.031); BASOPHILS # 0.03 x10^3/uL (0.01-0.08); EOSINOPHIL % 6.6 % (0.7-5.8); EOSINOPHILS # 0.44 x10^3/uL (0.04-0.36); HEMATOCRIT 39.1 % (34.1-44.9); HEMOGLOBIN 12.6 g/dL (11.2-15.7); MCHC 32.2 g/dl (32.2-35.5); MEAN CELL VOLUME 96.3 fl (79.4-94.8); MEAN PLT VOLUME 9.9 fl (9.4-12.3); MONOCYTE # 0.77 x10^3/uL (0.24-0.86); MONOCYTE % 11.6 % (4.7-12.5); PLATELET COUNT 288 x10^3/uL (182-369); RDW 12.4 % (12.3-16.6)
[2024-09-20] MEDS: MECLIZINE HCL 25 MG TABLET (FP) PO ONE (18:40)
[2024-09-20] MEDS: METOCLOPRAMIDE HCL INJECTION 10 MG/2 ML VIAL IVPB ONE (18:40)
[2024-09-20] MEDS: LACTATED RINGERS SOLUTION 1000 ML INFUS.BAG IV ONE (18:40)
[2024-09-20] MEDS: ACETAMINOPHEN 500 MG TABLET (FP) PO ONE (18:41)
[2024-09-20 19:00] LABS: CALCIUM 9.7 mg/dL (8.5-10.1)
[2024-09-20 19:01] LABS: BLOOD UREA NITROGEN 13.2 mg/dL (7-18); MAGNESIUM 2.3 mg/dL (1.8-2.4)
[2024-09-20 19:04] LABS: CREATININE 0.8 mg/dL (0.55-1.3)
[2024-09-20 19:06] LABS: BILIRUBIN,TOTAL 0.2 mg/dL (0.2-1)
[2024-09-20 19:54] LABS: HCV DIAGNOSTIC IN-HOUSE W/RFLX NON-REACTIVE (NONREACTIVE)
[2024-09-20 19:55] LABS: HIV INTERPRETATION NEGATIVE (NEGATIVE)
== END 2024-09-20 20:54 | disposition home or self-care (01) ==
LOC: JER 17:25
PROC: 3E033GC Introduction of Other Therapeutic Substance into Peripheral Vein, Percutaneous Approach (ICD-10-PCS; principal; 2024-09-20)
DX: R42 Dizziness and giddiness (principal); R11.0 Nausea; R51.9 Headache, unspecified; H93.11 Tinnitus, right ear
CPT/HCPCS: 36415; 70450-TC; 71046-TC-FY; 80053; 83735; 84484; 85025; 86803; 87389; 93005; 93010; 99285-25